=== PATIENT | male | born 1990 | race American Indian/Alaskan Native ===

== ENCOUNTER 2021-09-19 12:33 | Emergency (ER) | payer OTHER ==
[2021-09-19 12:43] VITALS: BP 127/83
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
[2021-09-19] MEDS ORDERED: KETOROLAC 30 MG/1 ML INJ IM ONE (15:50)
--- NOTE | 2021-09-19 16:25 | XRay Report ---
LEFT SHOULDER 3 VIEW(S) INDICATION / CLINICAL INFORMATION: shoulder pain. COMPARISON: None available. FINDINGS: BONES / JOINT(S): No acute fracture or subluxation. No significant arthritis. SOFT TISSUES: No significant abnormality. ADDITIONAL FINDINGS: None. IMPRESSION: 1. No acute findings. Signer Name: Michael Griffin MD Signed: 09/19/2021 4:21 PM Workstation Name: [id number]
== END 2021-09-19 16:40 | disposition home or self-care (01) ==
LOC: ED 12:33
DX: M25.512 Pain in left shoulder (principal); Z98.890 Other specified postprocedural states; F17.290 Nicotine dependence, other tobacco product, uncomplicated; V49.9XXA Car occupant (driver) (passenger) injured in unspecified traffic accident, initial encounter; Y93.89 Activity, other specified; Y92.89 Other specified places as the place of occurrence of the external cause; Y99.8 Other external cause status
CPT/HCPCS: 70450; 73030; 96372; 99284; J1885